=== PATIENT | female | born 1995 | race African-American/Black ===

== ENCOUNTER 2024-04-25 23:04 | Emergency (ER) | payer OTHER ==
[~2024-04-25] VITALS: Ht 177.8 cm; Wt 97.0 kg
[2024-04-25 23:09] VITALS: O2SAT 100
[2024-04-25 23:15] VITALS: TEMP 36.9; O2SAT 99
[2024-04-26 00:04] LABS: BASOPHILS % 0.6 % (0.0-2.0); EOSINOPHILS % 1.1 % (0.0-5.0); HEMATOCRIT. 38.9 % (36.0-48.0); HEMOGLOBIN. 12.9 g/dL (12.0-16.0); LYMPHOCYTES % 16.1 % (20.0-50.0); MEAN CORPUSCULAR HEMOGLOBIN 29.4 pg (28.0-32.0); MEAN CORPUSCULAR HGB CONC 33.1 g/dL (31.0-37.0); MEAN CORPUSCULAR VOLUME 88.7 fL (81.0-99.0); MEAN PLATELET VOLUME 9.3 fl (7.4-10.4); MONOCYTES % 9.8 % (2.0-8.0); NEUTROPHILS % 72.4 % (40.0-76.0); PLATELET 275 x1000/uL (130-400); RED BLOOD CELL COUNT 4.39 mill/uL (4.2-5.4); WHITE BLOOD COUNT 11.5 x1000/uL (4.5-11.0)
[2024-04-26 00:35] LABS: HCG SCREEN NEGATIVE
[2024-04-26 01:17] VITALS: BP 109/58; PULSE 84; RESP 16
[2024-04-26] MEDS: KETOROLAC 15MG/ML VIAL IM ONE (01:17)
[2024-04-26] MEDS: CEFTRIAXONE SODIUM 1G VIAL IM ONE (01:17)
[2024-04-26] MEDS: DEXAMETHASONE 10 MG/ML VIAL IM ONE (01:17)
[2024-04-26] MEDS ORDERED: SULF1TAB48 MT (01:20)
[2024-04-26] MEDS ORDERED: CEPH500T MT (01:20)
[2024-04-26] MEDS ORDERED: CETI1TAB MT (01:20)
[2024-04-26] MEDS ORDERED: PRED5TAB48 MT (01:20)
== END 2024-04-26 01:28 | disposition home or self-care (01) ==
LOC: ER 23:04
DX: L03.115 Cellulitis of right lower limb (principal); Z79.899 Other long term (current) drug therapy; Z79.52 Long term (current) use of systemic steroids; R21 Rash and other nonspecific skin eruption; W57.XXXA Bitten or stung by nonvenomous insect and other nonvenomous arthropods, initial encounter; Y93.89 Activity, other specified; Y92.89 Other specified places as the place of occurrence of the external cause; Y99.8 Other external cause status
CPT/HCPCS: 99284; 84703; 85025; 36415; 96372; J1885; J0696; J1100

== ENCOUNTER 2024-04-27 12:56 | Emergency (ER) | payer OTHER ==
[~2024-04-27] VITALS: Ht 177.8 cm; Wt 89.0 kg
[~2024-04-27 12:56] MED LIST: CEPH500T MT; CETI1TAB MT; PRED5TAB48 MT; SULF1TAB48 MT
[2024-04-27 13:19] VITALS: TEMP 36.6; O2SAT 98
[2024-04-27 15:43] VITALS: BP 119/55; PULSE 70; RESP 60; O2SAT 100
== END 2024-04-27 22:14 | disposition home or self-care (01) ==
LOC: ER 12:56
DX: L03.116 Cellulitis of left lower limb (principal); L03.115 Cellulitis of right lower limb; R21 Rash and other nonspecific skin eruption; Z79.899 Other long term (current) drug therapy; W57.XXXA Bitten or stung by nonvenomous insect and other nonvenomous arthropods, initial encounter; Y93.89 Activity, other specified; Y92.89 Other specified places as the place of occurrence of the external cause; Y99.8 Other external cause status
CPT/HCPCS: 99281